=== PATIENT | female | born 1965 | race African-American/Black ===

== ENCOUNTER → 2016-12-23 | Outpatient (CLI) | payer OTHER ==
[~2016-12-23] MED LIST: OXYB5TAB7 PO; SENN8.6T99 PO
--- NOTE | 2016-12-23 10:17 | RAD ---
DATE: 12/23/2016 EXAM: DIGITAL DIAGNOSTIC BILATERAL HISTORY: Swelling, tenderness under right arm for 2 years. History of left breast biopsy which was benign in 1999. COMPARISON: Please mammogram from 2015, 2014 and 2013. This study was interpreted with the benefit of Computerized Aided Detection (CAD). FINDINGS: Breast Density: HETERO The breast parenchyma Is heterogeneiously dense, which could reduce sensitivity of mammography. Breast parenchyma level C. The skin and nipples are within normal limits. Benign bilateral scattered calcifications. No suspicious spiculated masses, suspicious calcifications or areas of architectural distortion. IMPRESSION: No mammographic evidence of malignancy. Stable mammogram. BI-RADS CATEGORY: 2 BENIGN FINDING(S) RECOMMENDED FOLLOW-UP: 12M 12 MONTH FOLLOW-UP PQRS compliance statement: Patient information was entered into a reminder system with a target due date 12/23/2017 for the next mammogram. Mammography is a sensitive method for finding small breast cancers, but it does not detect them all and is not a substitute for careful clinical examination. A negative mammogram does not negate a clinically suspicious finding and should not result in delay in biopsying a clinically suspicious abnormality. "Our facility is accredited by the [employer] Mammography Program."
--- NOTE | 2016-12-23 10:19 | RAD ---
Ultrasound right axilla Indication: Right breast swelling and palpable abnormality for 2 years. Comparison: None Technique: Grayscale and color Doppler ultrasound images of the right axilla in the region of palpable abnormality. Findings: No solid or cystic lesions in the region of palpable abnormality. Impression: As above. Follow-up as clinically indicated.
== END | disposition home or self-care (01) ==
LOC: MAMMO 09:09
PROVIDERS: ATTEND Nurse Practitioner
DX: N64.4 Mastodynia (principal); M79.89 Other specified soft tissue disorders
CPT/HCPCS: 76641; G0204; 77066

== ENCOUNTER → 2017-01-07 | Outpatient (CLI) | payer BC ==
--- NOTE | 2017-01-08 09:04 | KCIC ---
MR of the right hip Indication: Right hip pain for a few weeks. No recent injury. Technique: Standard multiplanar sequences are obtained. Findings: Bones: No bone lesion, acute fracture or acute bone marrow edema. No femoral head osteonecrosis. Effusion: No significant effusion Cartilage: No evidence of acute cartilage defect or advanced DJD. Labrum: Defect at the base of the superior labrum, compatible with a small tear. Gluteus minimus and medius tendon: Intact Hamstring tendon: Intact Iliopsoas tendon: Intact Rectus femoris tendon attachment:Intact Soft tissue:No significant acute findings. Diagnostically limited coronal inversion recovery survey sequence obtained with a large [id number] demonstrates no acute pathology at the contralateral hip or visualized sacroiliac joints. There are fluid signal lesions in the bilateral adnexa. These may represent ovarian cysts. Larger on the right measures 4.4 cm. Impression: 1. Small superior labral tear. 2. Bilateral fluid signal lesions in the adnexa, likely ovarian cysts. Pelvic ultrasound could further evaluate. Electronically signed by: Ephraim Prajapati MD (01/08/2017 9:00 AM) [id number]
== END | disposition home or self-care (01) ==
LOC: KCIC MRI 16:03
PROVIDERS: ATTEND Chiropractor
DX: S73.101A Unspecified sprain of right hip, initial encounter (principal); X58.XXXA Exposure to other specified factors, initial encounter; Y93.89 Activity, other specified; Y92.89 Other specified places as the place of occurrence of the external cause; Y99.8 Other external cause status
CPT/HCPCS: 73721